=== PATIENT | female | born 1985 | race Caucasian/White ===

== ENCOUNTER 2016-06-17 03:45 | Observation (INO) | payer OTHER ==
[~2016-06-17] VITALS: Ht 167.6 cm; Wt 87.1 kg
[2016-06-17] MEDS: AMPICILLIN 2,000 MG in NACL 0.9% 100 ML IV SCH ×3 (01:30→17:30)
[~2016-06-17 03:45] MED LIST: CEPH250C16 PO
[2016-06-17] MEDS ORDERED: PREN1SGL25 PO (04:19)
[2016-06-17] MEDS ORDERED: IRON65TA11 PO (04:20)
[2016-06-17 04:26] VITALS: BP 110/60
[2016-06-17] MEDS ORDERED: AMPICILLIN 2,000 MG VIAL ONE ×5 (05:18→19:52)
[2016-06-17] MEDS ORDERED: AMPICILLIN 2,000 MG in NACL 0.9% 100 ML IV SCH (05:25)
[2016-06-17] MEDS: LACTATED RINGERS 1,000 ML IV SCH ×2 (05:46→16:00)
--- NOTE | 2016-06-17 08:02 | NUR ---
PATIENT HAS BEEN SCREENED AND CATEGORIZED LOW NUTRITION RISK. PATIENT WILL BE SEEN WITHIN 7 DAYS OF ADMISSION. 06/23/[address]
[2016-06-17 12:41] LABS: BILIRUBIN,URINE NEGATIVE (NEGATIVE); BLOOD, URINE TRACE-I (NEGATIVE); LEUKOCYTE ESTERASE ,URINE NEGATIVE (NEGATIVE); NITRITE, URINE NEGATIVE (NEGATIVE); PROTEIN,URINE NEGATIVE (NEGATIVE); UGLUCOSE 3+ (NEGATIVE); UROBILINOGEN,URINE 0.2 EU/dL (0.2 - 1)
[2016-06-17 13:03] LABS: APPEARANCE,URINE HAZY (CLEAR)
[2016-06-17 13:04] LABS: COLOR,URINE YELLOW (YELLOW)
[2016-06-17 13:05] LABS: RBC,URINE NONE SEEN /HPF (0-5)
[2016-06-17 13:06] LABS: BACTERIA,URINE 1+ /HPF (None Seen); SQUAMOUS EPITHELIAL CELL,UR 0-3 (FEW) /LPF (0-3 (FEW)); WBC,URINE 20-60 /HPF (0-5)
[2016-06-18] MEDS ORDERED: AMPICILLIN 2,000 MG VIAL ONE ×3 (01:23→10:17)
[2016-06-18 10:08] LABS: APPEARANCE,URINE CLEAR (CLEAR); BILIRUBIN,URINE NEGATIVE (NEGATIVE); BLOOD, URINE NEGATIVE (NEGATIVE); COLOR,URINE YELLOW (YELLOW); LEUKOCYTE ESTERASE ,URINE TRACE (NEGATIVE); NITRITE, URINE NEGATIVE (NEGATIVE); PROTEIN,URINE NEGATIVE (NEGATIVE); UGLUCOSE NEGATIVE (NEGATIVE)
[2016-06-18] MEDS: AMPICILLIN 2,000 MG in NACL 0.9% 100 ML IV SCH (10:16)
[2016-06-18 10:33] LABS: BACTERIA,URINE 1+ /HPF (None Seen); RBC,URINE 0-5 (RARE) /HPF (0-5)
== END 2016-06-18 11:15 | disposition home or self-care (01) ==
LOC: MLD 03:45
PROVIDERS: ADMIT Obstetrics & Gynecology; ATTEND Obstetrics & Gynecology
DX: O23.42 Unspecified infection of urinary tract in pregnancy, second trimester (principal); Z3A.26 26 weeks gestation of pregnancy
CPT/HCPCS: 76815; 81001; 87086; 87186; 96361; 96365; 96366; G0378; J0290; J7120; Q0092

== ENCOUNTER 2016-07-08 18:04 | Emergency (ER) | payer OTHER ==
[~2016-07-08] VITALS: Ht 165.1 cm; Wt 89.4 kg
[~2016-07-08 18:04] MED LIST changes: +AMPICILLIN 2,000 MG VIAL ONE; +AMPICILLIN 2,000 MG in NACL 0.9% 100 ML IV SCH; -CEPH250C16 PO; +IRON65TA11 PO; +LACTATED RINGERS 1,000 ML IV SCH; +PREN1SGL25 PO
--- NOTE | 2016-07-08 18:58 | NUR ---
PATIENT LEFT WITHOUT BEING SEEN BY DR. BURT. NO FURTHER CARE PROVIDED FOR PATIENT.
== END 2016-07-08 18:58 | disposition left against medical advice (07) ==
LOC: MED 18:04 → EDSTATUS 18:04 → MED 18:58
DX: M54.9 Dorsalgia, unspecified (principal); Z53.21 Procedure and treatment not carried out due to patient leaving prior to being seen by health care provider
CPT/HCPCS: 76770; 76805; 81000; J0290; J7120; Q0092

== ENCOUNTER 2016-08-10 13:00 | Observation (INO) | payer OTHER ==
[~2016-08-10] VITALS: Ht 165.1 cm; Wt 86.2 kg
[~2016-08-10 13:00] MED LIST changes: -AMPICILLIN 2,000 MG VIAL ONE; -AMPICILLIN 2,000 MG in NACL 0.9% 100 ML IV SCH; -IRON65TA11 PO; -LACTATED RINGERS 1,000 ML IV SCH
[2016-08-10] MEDS ORDERED: IRON65TA11 PO (13:57)
[2016-08-10 14:09] VITALS: BP 111/64
[2016-08-10 15:00] LABS: APPEARANCE,URINE HAZY (CLEAR); BILIRUBIN,URINE NEGATIVE (NEGATIVE); BLOOD, URINE 2+ (NEGATIVE); COLOR,URINE YELLOW (YELLOW); LEUKOCYTE ESTERASE ,URINE TRACE (NEGATIVE); NITRITE, URINE POSITIVE (NEGATIVE); PH,URINE 5.5 (5.0-9.0); PROTEIN,URINE TRACE (NEGATIVE); UGLUCOSE 1+ (NEGATIVE); UROBILINOGEN,URINE 0.2 EU/dL (0.2 - 1)
[2016-08-10 15:13] LABS: BACTERIA,URINE 3+ /HPF (None Seen); RBC,URINE 3-10 (FEW) /HPF (0-5)
[2016-08-10 15:14] LABS: SQUAMOUS EPITHELIAL CELL,UR 4-10 (MOD) /LPF (0-3 (FEW))
== END 2016-08-10 15:40 | disposition home or self-care (01) ==
LOC: MLD 13:00
PROVIDERS: ADMIT Obstetrics & Gynecology; ATTEND Obstetrics & Gynecology
DX: O26.893 Other specified pregnancy related conditions, third trimester (principal); M54.9 Dorsalgia, unspecified; Z3A.34 34 weeks gestation of pregnancy
CPT/HCPCS: 76770; 76805; 81001; 87086; 87186; G0378; Q0092

== ENCOUNTER 2022-07-26 10:53 | Emergency (ER) | payer OTHER ==
[~2022-07-26] VITALS: Ht 162.6 cm; Wt 99.8 kg
[~2022-07-26 10:53] MED LIST changes: +FERR-252 PO
[2022-07-26 11:06] VITALS: BP 121/81
[2022-07-26] MEDS ORDERED: ONDANSETRON 4 MG/2 ML VIAL IVP ONE (12:05)
[2022-07-26] MEDS ORDERED: DEXAMETHASONE 10 MG/ML VIAL IVP ONE (12:05)
[2022-07-26] MEDS ORDERED: KETOROLAC 15 MG/ML VIAL IVP ONE (12:05)
[2022-07-26] MEDS ORDERED: NACL 0.9% 1,000 ML IV ONE (12:05)
[2022-07-26 12:18] LABS: BASOPHILS % (AUTO) 0.2 % (0.0-2.0); EOSINOPHILS % (AUTO) 0.3 % (0.0-4.0); HEMATOCRIT 36.6 % (36-48); HEMOGLOBIN 11.8 g/dL (12.0-16.0); LYMPHOCYTES # (AUTO) 2.6 K/uL (2.5-16.5); LYMPHOCYTES % (AUTO) 20.3 % (20.5-51.1); MEAN CORPUSCULAR HEMOGLOBIN 27 pg (27-31); MEAN CORPUSCULAR HGB CONC 32 g/dL (33-37); MEAN CORPUSCULAR VOLUME 83.1 fL (80-94); MONOCYTES # (AUTO) 0.8 K/uL (0.8-1.0); MONOCYTES % (AUTO) 6.4 % (1.7-9.3); NEUTROPHILS # (AUTO) 9.2 K/uL (1.8-7.7); NEUTROPHILS % (AUTO) 72.8 % (42.2-75.2); PLATELET COUNT (AUTO) 317 K/uL (140-450); RED BLOOD CELL COUNT(AUTO) 4.41 MIL/uL (4.20-5.40); RED CELL DISTRIBUTION WIDTH 13.3 % (11.6-13.7); WHITE BLOOD COUNT (AUTO) 12.6 K/uL (4.8-10.8)
--- NOTE | 2022-07-26 12:27 | NUR ---
medicated for headache as ordered
[2022-07-26 12:31] LABS: ALBUMIN 3.4 g/dL (3.4-5.0); ANION GAP 8.3 (8-16); CARBON DIOXIDE 28.9 mmol/L (21-32); CREATININE 0.6 mg/dL (0.6-1.3); POTASSIUM 4.2 mmol/L (3.5-5.1); TOTAL BILIRUBIN 0.1 mg/dL (0.0-1.0)
[2022-07-26] MEDS ORDERED: ASPI-1198 PO (12:53)
[2022-07-26] MEDS ORDERED: diphenhydrAMINE 50 MG/ML VIAL IVP ONE (12:55)
[2022-07-26] MEDS ORDERED: METOCLOPRAMIDE 10 MG/2 ML INJ VIAL IVP ONE (12:55)
[2022-07-26] MEDS ORDERED: ACETAMINOPHEN EXTRA STRENGTH 500 MG TAB PO ONE (12:55)
--- NOTE | 2022-07-26 13:15 | NUR ---
still headache 09/01, medicated as ordered, o2 sat 98% ra, sr up times 2
--- NOTE | 2022-07-26 13:37 | NUR ---
headache improved to 03/04. requesting to be dc home
[2022-07-26 13:45] VITALS: BP 132/72
--- NOTE | 2022-07-26 13:48 | NUR ---
Patient discharged with v/s stable. Written and verbal after care instructions given and explained. Patient alert, oriented and verbalized understanding of instructions. Ambulatory with steady gait. All questions addressed prior to discharge. ID band removed. Patient advised to follow up with PMD. Rx of given. Patient educated on indication of medication including possible reaction and side effects. Opportunity to ask questions provided and answered. advised to avoid drving after being discharged from the hospital, stated someone was waiting for her
--- NOTE | 2022-07-26 14:00 | NUR ---
The patient's care was reviewed and supervised by Marilla 04 ED, RN.
== END 2022-07-26 13:45 | disposition home or self-care (01) ==
LOC: MED 10:53
DX: R51.9 Headache, unspecified (principal); R11.0 Nausea; R42 Dizziness and giddiness; I10 Essential (primary) hypertension; Z79.899 Other long term (current) drug therapy
CPT/HCPCS: 36415; 80053; 81025; 85025; 96361; 96374; 96375; 99284; J1100; J1200; J1885; J2405; J2765; J7030